=== PATIENT | female | born 1970 | race Caucasian/White ===

== ENCOUNTER 2020-06-27 20:09 | Emergency (ER) | payer BC ==
[~2020-06-27] VITALS: Ht 167.6 cm; Wt 56.2 kg
[2020-06-27] MEDS ORDERED: AMLODIPINE BESYL5 MG PO (20:25)
[2020-06-27 20:55] LABS: BASOPHILS ABSOLUTE AUTO 0.03 K/mm3 (0.00-0.23); BASOPHILS PERCENT AUTO 1 % (0-2); EOSINOPHILS ABSOLUTE AUTO 0.18 K/mm3 (0.00-0.68); EOSINOPHILS PERCENT AUTO 5 % (0-6); Hematocrit 37.1 % (33.0-51.0); Hemoglobin 12.8 g/dL (11.5-16.0); IMMATURE GRAN ABSOLUTE AUTO 0.01 K/mm3 (0.00-0.10); IMMATURE GRAN PERCENT AUTO 0 % (0-1); LYMPHOCYTES ABSOLUTE AUTO 1.48 K/mm3 (0.84-5.20); LYMPHOCYTES PERCENT AUTO 40 % (21-46); MONOCYTES ABSOLUTE AUTO 0.28 K/mm3 (0.16-1.47); MONOCYTES PERCENT AUTO 8 % (4-13); Mean Corpuscular HGB 33.3 pg (26.0-34.0); Mean Corpuscular HGB Conc 34.5 g/dL (31.5-36.5); Mean Corpuscular Volume 97 fL (80-100); Mean Platelet Volume 9.1 fL (9.1-12.4); NEUTROPHILS ABSOLUTE AUTO 1.72 K/mm3 (1.96-9.15); NEUTROPHILS PERCENT AUTO 46 % (41-73); Platelet Count 353 K/mm3 (150-400); RDW Coefficient Variation 12.2 % (11.7-14.2); RDW Standard Deviation 43.5 fL (35.1-46.3); Red Blood Cell Count 3.84 M/mm3 (3.80-5.20)
[2020-06-27 22:08] LABS: Alanine Aminotransfer (ALT/SGP 29 U/L (12-78); Albumin, Blood 3.6 g/dL (3.4-5.0); Albumin/Globulin Ratio 1.2 (0.8-1.8); Alk Phos 83 U/L (50-136); Anion Gap 0 mmol/L (6-16); Aspartate Aminotrans (AST/SGOT 18 U/L (12-37); Bilirubin, Total 0.1 mg/dL (0.1-1.0); Blood Urea Nitrogen 8 mg/dL (8-24); Bun/Creatinine Ratio 10.9 (12.0-20.0); CO2, Blood 34 mmol/L (21-32); Chloride, Blood 106 mmol/L (98-108); Creatinine, Blood 0.73 mg/dL (0.40-1.00); Globulin, Blood 3.1 g/dL (2.2-4.0); Glomerular Filtration Rate >60 (60-); Glucose, Blood 88 mg/dL (70-99); Potassium, Blood 3.6 mmol/L (3.5-5.5); Sodium, Blood 140 mmol/L (136-145); Total Protein, Blood 6.7 g/dL (6.4-8.2)
[2020-06-27 22:18] LABS: Calcium, Blood 8.6 mg/dL (8.5-10.1)
[2020-07-08] MEDS ORDERED: FLUT.05NI (13:55)
[2020-07-08] MEDS ORDERED: PROAIR DIGIHAL90 MCG INH (13:55)
[2020-07-08] MEDS ORDERED: OMEP20ER PO (13:56)
[2020-07-08] MEDS ORDERED: AMBIEN5 MG PO (13:56)
[2020-07-08] MEDS ORDERED: PSEUDOEPHEDRINE30 M2 PO (13:56)
== END 2020-06-27 22:15 | disposition left against medical advice (07) ==
LOC: ER 20:09
PROVIDERS: Physician Assistant
DX: R03.0 Elevated blood-pressure reading, without diagnosis of hypertension (principal); R51.9 Headache, unspecified; Z53.21 Procedure and treatment not carried out due to patient leaving prior to being seen by health care provider
CPT/HCPCS: 36415; 70450; 80053; 85025; 99283-25

== ENCOUNTER 2020-07-16 08:00 | Day surgery (SDC) | payer BC ==
[~2020-07-16] VITALS: Ht 167.6 cm; Wt 55.2 kg
[~2020-07-16 08:00] MED LIST: AMBIEN5 MG PO; AMLODIPINE BESYL5 MG PO; FLUT.05NI; OMEP20ER PO; PROAIR DIGIHAL90 MCG INH; PSEUDOEPHEDRINE30 M2 PO
[2020-07-16] MEDS ORDERED: PRAM.125 PO (08:32)
[2020-07-16] MEDS ORDERED: LOSA50 PO (08:32)
--- NOTE | 2020-07-16 09:33 | NUR ---
07/16/20 0933 LEONCIO LAY 56,[id number]
== END 2020-07-16 09:49 | disposition home or self-care (01) ==
LOC: ORSCSDS 08:00
PROVIDERS: Internal Medicine Gastroenterology
PROC: 0DB58ZX Excision of Esophagus, Via Natural or Artificial Opening Endoscopic, Diagnostic (ICD-10-PCS; principal; 2020-07-16 09:15)
PROC: 0D758ZZ Dilation of Esophagus, Via Natural or Artificial Opening Endoscopic (ICD-10-PCS; principal; 2020-07-16 09:15)
PROC: 0DB68ZX Excision of Stomach, Via Natural or Artificial Opening Endoscopic, Diagnostic (ICD-10-PCS; principal; 2020-07-16 09:15)
DX: R13.12 Dysphagia, oropharyngeal phase (principal); R22.1 Localized swelling, mass and lump, neck; K31.7 Polyp of stomach and duodenum; K44.9 Diaphragmatic hernia without obstruction or gangrene; F17.210 Nicotine dependence, cigarettes, uncomplicated; Z79.899 Other long term (current) drug therapy
CPT/HCPCS: 88305; J2704; J7120

== ENCOUNTER → 2021-06-23 | Outpatient (CLI) | payer BC ==
[~2021-06-23] MED LIST changes: +CYCL10 PO; +ESTRADIOL TD; +IBUP600 PO; +LOSA50 PO; +PRAM.125 PO
== END | disposition home or self-care (01) ==
LOC: LAB SHORT 16:31 → LAB 16:31
DX: N39.0 Urinary tract infection, site not specified (principal)
CPT/HCPCS: 87077; 87086; 87186